=== PATIENT | female | born 1970 | race Caucasian/White ===

== ENCOUNTER 2021-06-06 20:21 | Inpatient (IN) | payer BC, OTHER ==
[~2021-06-06] VITALS: Ht 154.9 cm; Wt 66.0 kg
[2021-06-07] MEDS ORDERED: KETOROLAC TROMETH 30 MG/ML 1ML VIAL IV ONE (03:00)
[2021-06-07] MEDS ORDERED: HYDROmorphone HCL 2 MG/ML VL IV ONE (03:00)
[2021-06-07] MEDS ORDERED: ONDANSETRON HCL 4 MG/2 ML VIAL IV ONE (03:00)
[2021-06-07 03:45] LABS: Basophils # (auto) 0 10 ^3/uL (0-0.2); Basophils % (auto) 0.2 % (0.0-2.0); Eosinophils # (auto) 0.1 10 ^3/uL (0-0.8); Monocytes # (auto) 1.1 10 ^3/uL (0-1.3)
[2021-06-07 03:46] LABS: Eosinophils % (auto) 0.4 % (0.0-7.0); Hematocrit 38.9 % (36.0-46.0); Hemoglobin 12.9 g/dL (12.2-16.2); Lymphocytes # (auto) 4.2 10 ^3/uL (0.4-5.4); Lymphocytes % (auto) 28.3 % (10.0-50.0); Mean Corpuscular Hemoglobin 28.9 pg (28.0-32.0); Mean Corpuscular Volume 87.4 fL (80.0-100.0); Monocytes % (auto) 7.1 % (0.0-12.0); Neutrophils # (auto) 9.5 10 ^3/uL (1.6-8.6); Red Blood Cells 4.45 10^6/uL (4.0-5.20); Red Cell Distribution Width 12.9 % (11.8-14.3); White Blood Cell 14.8 10^3/uL (4.4-10.8)
[2021-06-07 04:03] LABS: Albumin 3.6 g/dL (3.4-5.0); BUN/Creatinine Ratio 24.4; Calcium 8.5 mg/dL (8.5-10.1); Potassium 3.4 mmol/L (3.5-5.1)
[2021-06-07 04:06] LABS: Bilirubin, Total 0.5 mg/dL (0.2-1.0); Total Protein 7.2 g/dL (6.4-8.2)
[2021-06-07] MEDS ORDERED: CEFTRIAXONE SODIUM 2 GM in D5W 5% 50 ML IV ONE (05:15)
[2021-06-07] MEDS ORDERED: SODIUM CHLORIDE 0.9% 1,000 ML IV ONE (05:30)
[2021-06-07] MEDS ORDERED: ONDANSETRON HCL 4 MG/2 ML VIAL IV PRN (06:45)
[2021-06-07] MEDS ORDERED: TEMAZEPAM 15 MG CAP PO PRN (06:45)
[2021-06-07] MEDS ORDERED: HYDROcodone-ACET 5/325MG TAB PO PRN (06:45)
[2021-06-07] MEDS ORDERED: ACETAMINOPHEN 325 MG TAB PO PRN (06:45)
[2021-06-07] MEDS ORDERED: MORPHINE SULFATE 4 MG/ML SYR/VIAL IV PRN (06:45)
[2021-06-07] MEDS: cefTRIAXone 1GM/50ML D5W 50 ML IV SCH (09:00)
[2021-06-07] MEDS: PANTOPRAZOLE 40 MG TAB PO SCH (09:56)
[2021-06-07] MEDS: AZITHROMYCIN 500MG/ 250ML 250 ML IV SCH (09:56)
[2021-06-07 10:42] LABS: Urine Bacteria NONE SEEN /hpf (None Seen); Urine Blood TRACE /uL (Negative); Urine Specific Gravity 1.005 (1.001-1.035); Urine WBC 1 /hpf (0 - 5)
[2021-06-07 18:40] VITALS: BP 127/73
[2021-06-07 18:55] VITALS: BP 127/73
[2021-06-07 21:32] VITALS: BP 107/54
[2021-06-07] MEDS ORDERED: GUAI200T2 PO (23:56)
[2021-06-07] MEDS ORDERED: LEVA1AER IN (23:56)
[2021-06-07] MEDS ORDERED: HYD1TP PR (23:56)
[2021-06-07] MEDS ORDERED: AZIT250T8 PO (23:56)
[2021-06-07] MEDS ORDERED: PRED20TA2 PO (23:56)
[2021-06-08 04:57] VITALS: BP 100/58
[2021-06-08 07:06] LABS: Potassium 3.7 mmol/L (3.5-5.1)
[2021-06-08 07:10] LABS: Eosinophils # (auto) 0.2 10 ^3/uL (0-0.8); Monocytes # (auto) 0.6 10 ^3/uL (0-1.3)
[2021-06-08 07:13] LABS: Basophils # (auto) 0 10 ^3/uL (0-0.2); Basophils % (auto) 0.7 % (0.0-2.0); Eosinophils % (auto) 3.1 % (0.0-7.0); Hematocrit 36.4 % (36.0-46.0); Hemoglobin 12.3 g/dL (12.2-16.2); Lymphocytes # (auto) 3.7 10 ^3/uL (0.4-5.4); Mean Corpuscular Hemoglobin 29.8 pg (28.0-32.0); Mean Corpuscular Hgb Conc. 33.9 g/dL (32.0-36.0); Mean Corpuscular Volume 87.8 fL (80.0-100.0); Monocytes % (auto) 7.9 % (0.0-12.0); Neutrophils # (auto) 2.6 10 ^3/uL (1.6-8.6); Neutrophils % (auto) 36.3 % (37.0-80.0); Nucleated Red Blood Cells % 0.1 %; Red Blood Cells 4.15 10^6/uL (4.0-5.20); White Blood Cell 7.1 10^3/uL (4.4-10.8)
[2021-06-08 07:14] LABS: BUN/Creatinine Ratio 23.1; Bilirubin, Total 0.4 mg/dL (0.2-1.0)
[2021-06-08 09:00] VITALS: BP 104/59
[2021-06-08] MEDS: cefTRIAXone 1GM/50ML D5W 50 ML IV SCH (09:07)
[2021-06-08] MEDS: PANTOPRAZOLE 40 MG TAB PO SCH (09:08)
[2021-06-08] MEDS: AZITHROMYCIN 500MG/ 250ML 250 ML IV SCH (12:48)
[2021-06-08 13:00] VITALS: BP 94/56
[2021-06-08 14:15] VITALS: BP 104/60
[2021-06-08 17:00] VITALS: BP 101/63
[2021-06-08 21:58] VITALS: BP 106/68
[2021-06-09 05:00] VITALS: BP 89/51
[2021-06-09 09:23] VITALS: BP_SYST 105; BP_SYST 94; BP_DIAS 63; BP_DIAS 66
[2021-06-09] MEDS: cefTRIAXone 1GM/50ML D5W 50 ML IV SCH (09:23)
[2021-06-09] MEDS: PANTOPRAZOLE 40 MG TAB PO SCH (09:24)
[2021-06-09 13:03] VITALS: BP 108/67
[2021-06-09] MEDS ORDERED: AMOX500T86 PO (14:06)
[2021-06-09 15:51] VITALS: BP 108/67
[2021-06-09 17:00] VITALS: BP 105/65
== END 2021-06-09 17:15 | disposition home or self-care (01) | DRG 871 ==
LOC: ER 20:23 → OVERFLOW 06-07 06:38 → EAST 06-07 18:44
PROVIDERS: ADMIT Nurse Practitioner; ATTEND Internal Medicine Nephrology
DX: A41.89 Other specified sepsis (principal); U07.1 COVID-19; J12.82 Pneumonia due to coronavirus disease 2019; J98.11 Atelectasis; N13.6 Pyonephrosis; E87.6 Hypokalemia; Z87.442 Personal history of urinary calculi
CPT/HCPCS: 36415; 71045; 74176; 80053; 81001; 82728; 83615; 85025; 85379; 86141; 87040; 87086; 87426; 93005; 96365; 96375; G0378; J0696; J1885; J2405; J7060